=== PATIENT | female | born 1945 | race Caucasian/White ===

== ENCOUNTER 2017-05-04 15:41 | Emergency (ER) | payer MEDICARE, OTHER ==
[~2017-05-04] VITALS: Ht 157.5 cm; Wt 63.5 kg
[2017-05-04] MEDS ORDERED: HYDROCHLOROTHIAZIDE (16:05)
[2017-05-04] MEDS ORDERED: PRAS10TA5 PO (16:05)
[2017-05-04] MEDS ORDERED: ESTR1TAB17 PO (16:05)
[2017-05-04] MEDS ORDERED: SPIR25TA4 PO (16:05)
[2017-05-04] MEDS ORDERED: ATOR40TA29 PO (16:05)
[2017-05-04] MEDS ORDERED: [UNRECOGNIZED DRUG - OTHER] (16:05)
[2017-05-04] MEDS ORDERED: TRIAMTERENE (16:05)
[2017-05-04] MEDS ORDERED: NITROGLYCERIN 0.4 MG/TAB BOTTLE SL ONE (16:15)
--- NOTE | 2017-05-04 16:20 | NUR ---
PT HAS NO COMPLAINTS OF CHEST PAIN AT THIS TIME, WILL CONTINUE TO MONITOR AND GIVE PRN NITRO IF NECESSARY
[2017-05-04 16:35] LABS: BASOPHILS % (AUTO) 0.5 % (0.0-2.0); EOSINOPHILS % (AUTO) 0.6 % (0.0-7.0); HEMATOCRIT 37.3 % (37-47); HEMOGLOBIN 12.7 G/DL (12.0-16.0); LYMPHOCYTES # (AUTO) 1.8 K/UL (0.8-4.8); LYMPHOCYTES % (AUTO) 27.2 % (20.5-51.5); MEAN CORPUSCULAR HGB CONC 34 g/dL (32.0-37.0); MEAN CORPUSCULAR VOLUME 85.3 FL (81.0-99.0); MONOCYTES # (AUTO) 0.5 K/UL (0.1-1.30); MONOCYTES % (AUTO) 7.9 % (0.0-11.0); NEUTROPHILS # (AUTO) 4.2 K/UL (1.8-8.9); NEUTROPHILS % (AUTO) 63.8 % (38.5-71.5); PLATELET COUNT (AUTO) 221 K/UL (150-450); RED BLOOD CELL COUNT(AUTO) 4.37 MIL/UL (4.2-5.4); WHITE BLOOD COUNT (AUTO) 6.5 K/UL (4.0-11.2)
[2017-05-04 16:40] LABS: CARBON DIOXIDE 28 mmol/L (21-32); CHLORIDE 101 mmol/L (98-107); CREATININE 1.7 mg/dL (0.6-1.3); GLUCOSE 87 mg/dL (74-106); POTASSIUM 3.9 mmol/L (3.5-5.1); UREA NITROGEN, BLOOD 16 mg/dL (7-18)
[2017-05-04 16:52] LABS: ALANINE AMINOTRANSFERASE 13 U/L (14-59); ALKALINE PHOSPHATASE 67 U/L (50-136); ASPARTATE AMINOTRANSFERASE 12 U/L (15-37); BILIRUBIN,DIRECT 0.2 mg/dL (0.0-0.2); BILIRUBIN,TOTAL 0.6 mg/dL (0.2-1.0)
--- NOTE | 2017-05-04 17:09 | NUR ---
IV removed. Catheter intact and site benign. Pressure and 4x4 gauze applied to site. No bleeding noted. Patient discharged to home in stable conditon with family. Written and verbal after care instructions given. Patient and family verbalizes understanding of instructions. Stressed follow up with pmd.
[2017-05-04 17:10] VITALS: BP 135/84
== END 2017-05-04 17:11 | disposition home or self-care (01) ==
LOC: ER 15:43 → EDBD 15:43 → ER 17:11
DX: R07.89 Other chest pain (principal); I25.10 Atherosclerotic heart disease of native coronary artery without angina pectoris; I25.2 Old myocardial infarction; Z88.5 Allergy status to narcotic agent; Z95.5 Presence of coronary angioplasty implant and graft
CPT/HCPCS: 36415; 70030-TC; 71010; 85025; 85730; 93005; A4663

== ENCOUNTER 2019-03-23 16:21 | Emergency (ER) | payer MEDICARE, OTHER ==
[~2019-03-23] VITALS: Ht 160 cm; Wt 68.9 kg
[~2019-03-23 16:21] MED LIST: ATOR40TA29 PO; ESTR1TAB17 PO; HYDROCHLOROTHIAZIDE; PRAS10TA5 PO; SPIR25TA6 PO; TRIAMTERENE; [UNRECOGNIZED DRUG - OTHER]
--- NOTE | 2019-03-23 16:25 | NUR ---
Admit a 73yo female rescue via ambulance from home. C/O mechanical trip and fall and injured her right shoulder, obtaines some bleeding on her right nostril and a purplish bump on her forehead. applied ice pack on her right shoulder.
[2019-03-23] MEDS ORDERED: MORPHINE SULFATE 4 MG/1 ML DISP.SYRIN ONE (16:38)
--- NOTE | 2019-03-23 16:40 | NUR ---
Pt is medicated for severe pain as ordered.
[2019-03-23] MEDS ORDERED: MORPHINE SULFATE 4 MG/1 ML DISP.SYRIN IV ONE (16:45)
[2019-03-23] MEDS ORDERED: HYDROMORPHONE 1 MG/1 ML DISP.SYRIN ONE (16:50)
[2019-03-23] MEDS ORDERED: METO25TA6 PO (16:51)
[2019-03-23] MEDS ORDERED: TIMO5SOL11 OP (16:51)
[2019-03-23] MEDS ORDERED: ESCI10TA PO (16:51)
[2019-03-23] MEDS ORDERED: ONDANSETRON 4 MG/2 ML VIAL ONE ×2 (16:53→17:38)
[2019-03-23] MEDS ORDERED: HYDROMORPHONE 1 MG/1 ML DISP.SYRIN IV ONE (17:00)
[2019-03-23] MEDS ORDERED: ONDANSETRON 4 MG/2 ML VIAL IV ONE ×2 (17:00→17:45)
--- NOTE | 2019-03-23 17:00 | NUR ---
To CT of shoulder and right arm.
--- NOTE | 2019-03-23 17:42 | NUR ---
Pt had a large amount of emesis x 1. Medicated with Zofran 8mg slow IVP as ordered. Daughter signed consent for the Close Reduction of the right shoulder.
[2019-03-23] MEDS ORDERED: PROPOFOL 200 MG/20 ML BOTTLE ONE (17:52)
--- NOTE | 2019-03-23 17:54 | NUR ---
Propofol 35mg slow IVP give pre procedure as ordered. Pt still very restless, medicated again with Propofol 35mg slow IVP at 17:56 as ordered. Pt sedated and close reduction right shoulder done by .
--- NOTE | 2019-03-23 18:00 | NUR ---
VSS monitored. O2sat is 100% on 3LNC. Pt is still drowsy but easily arousable.
[2019-03-23] MEDS ORDERED: PROPOFOL 200 MG/20 ML BOTTLE IV ONE (18:30)
--- NOTE | 2019-03-23 19:10 | NUR ---
Report given to Javed QUINTERO.
--- NOTE | 2019-03-23 19:25 | NUR ---
Patient discharged to home in stable conditon. Written and verbal after care instructions given. Patient and daughter verbalize understanding of instructions.wheelchaired pt out to pt son car. pt made an appt with ortho tomorrow.pt breathing normally. pt deneis pain at this time.
--- NOTE | 2019-03-23 19:27 | NUR ---
see the moderate sedation floww sheet for further details on vs and pt report.
[2019-03-23 19:28] VITALS: BP 131/71
== END 2019-03-23 19:25 | disposition home or self-care (01) ==
LOC: ER 16:21
DX: S42.131A Displaced fracture of coracoid process, right shoulder, initial encounter for closed fracture (principal); S43.014A Anterior dislocation of right humerus, initial encounter; I25.2 Old myocardial infarction; E03.9 Hypothyroidism, unspecified; I25.10 Atherosclerotic heart disease of native coronary artery without angina pectoris; Z90.710 Acquired absence of both cervix and uterus; Z88.5 Allergy status to narcotic agent; Z79.899 Other long term (current) drug therapy; W01.0XXA Fall on same level from slipping, tripping and stumbling without subsequent striking against object, initial encounter; Y93.89 Activity, other specified; Y92.89 Other specified places as the place of occurrence of the external cause; Y99.8 Other external cause status
CPT/HCPCS: 23650; 70450; 72125; 73020; 73030; 73070; 73100; 73200; 96374; 96375; 96376; 99152; 99285; J1170; J2270; J2405 ×2; A4663; G0500; J3490